=== PATIENT | female | born 1990 | race Two or more races ===

== ENCOUNTER → 2025-01-09 09:56 | Outpatient (CLI) | payer OTHER ==
[2025-01-09 10:38] LABS: BASO % 0.2 % (0.1-1.2); EOS # 0.06 (0.04-0.54); EOS % 0.7 % (0.7-7.0); HEMATOCRIT 42.3 % (34.1-44.9); HEMOGLOBIN 13.8 g/dL (11.2-15.7); LYMPH # 2.66 (1.18-3.74); LYMPH % 32.6 % (19.3-53.1); MONO # 0.72 (0.24-0.82); MONO % 8.8 % (4.7-12.5); NEUT # 4.68 (1.56-6.13); NEUT % 57.3 % (34.0-71.1); PLATELET COUNT 247 K/uL (163-369); RED BLOOD COUNT 5.31 M/uL (3.93-5.22)
[2025-01-09 10:43] LABS: PH,URINE 7.5 (5.0-8.0); URINE APPEARANCE Clear; URINE BILIRRUBIN Negative (NEGATIVE); URINE BLOOD Negative; URINE COLOR Yellow; URINE GLUCOSE Negative (NEGATIVE); URINE KETONE Negative (NEGATIVE); URINE LEUKOCYTE Trace; URINE NITRATE Negative; URINE PROTEIN Negative (NEGATIVE)
[2025-01-09 10:45] LABS: URINE BACTERIA 1271.5 uL (0.0-1933); URINE EPITHELIAL CELLS 29.4 uL (0.0-38.8); URINE RBC 21.6 uL (0.0-20.8); URINE WBC 25.9 uL (0.0-23.2)
[2025-01-09 11:36] LABS: URINE CAST 1.32 uL (0.0-1.40)
[2025-01-09 12:06] LABS: ALBUMIN 4.1 gm/dL (3.4-5.0); BILIRUBIN TOTAL 0.3 mg/dL (0.3-1.2); CALCIUM 9.7 mg/dL (8.5-10.1); CREATININE SERUM 0.61 mg/dL (0.55-1.02); GFR 111.61; GLOBULINA 3.8 G/DL (2.4-3.5); POTASSIUM 3.97 mEq/L (3.5-5.1); T3 TOTAL 1.1 ng/ml (0.846-2.02); T4 TOTAL 8.51 UG/DL (4.8-13.9); TOTAL PROTEIN 7.9 gm/dL (6.4-8.2); TSH 1.56 uIU/mL (0.358-3.74); VITAMIN D3 25 HYDROXY 40.09 ng/ml (30-120)
== END | disposition home or self-care (01) ==
LOC: LAB 09:56
DX: D64.9 Anemia, unspecified (principal); E78.9 Disorder of lipoprotein metabolism, unspecified; E78.2 Mixed hyperlipidemia; E78.00 Pure hypercholesterolemia, unspecified; E11.9 Type 2 diabetes mellitus without complications; E55.9 Vitamin D deficiency, unspecified; N39.0 Urinary tract infection, site not specified; E06.0 Acute thyroiditis; N91.2 Amenorrhea, unspecified; Z12.5 Encounter for screening for malignant neoplasm of prostate; Z12.11 Encounter for screening for malignant neoplasm of colon; R97.1 Elevated cancer antigen 125 [CA 125]; Z13.21 Encounter for screening for nutritional disorder

== ENCOUNTER 2025-07-13 13:44 | Outpatient (CLI) | payer OTHER ==
[2025-07-13 14:49] LABS: COVID-19 AG NEGATIVE (NEGATIVE)
== END 2025-07-13 13:47 | disposition home or self-care (01) ==
LOC: LAB 13:44
PROVIDERS: ATTEND General Practice
DX: Z20.828 Contact with and (suspected) exposure to other viral communicable diseases (principal); Z20.822 Contact with and (suspected) exposure to COVID-19

== ENCOUNTER → 2025-07-13 | Emergency (ER) | payer OTHER ==
[~2025-07-13] VITALS: Ht 157.5 cm; Wt 63.0 kg
== END | disposition left against medical advice (07) ==
LOC: ER 12:28
DX: Z53.21 Procedure and treatment not carried out due to patient leaving prior to being seen by health care provider (principal)